=== PATIENT | male | born 1955 | race Caucasian/White ===

== ENCOUNTER → 2021-04-19 16:19 | Outpatient (CLI) | payer MEDICARE, SELFPAY ==
--- NOTE | 2021-04-19 | DI.RAD.S_ITS ---
PROCEDURE: XR HAND RT MIN 3V INDICATIONS: CYST AND EXPOSED ORTHOPEDIC HARDWARE TECHNIQUE: 3 views of the hand(s) acquired. COMPARISON: None. FINDINGS: Two screws are present in the base of the 1st metacarpal. There is no abnormal lucency surrounding the screws to suggest loosening. The more distal screw appears potentially to have backed out by approximately 2 millimeters, although there is no prior imaging to compare position of the screw. Intra osseous cyst in the distal and medial aspect of the 1st proximal phalanx may represent intraosseous ganglion cyst or other intra osseous cyst. IMPRESSION: Two screws in the base of the 1st metacarpal, one of which may have potentially migrated since placement (although there is no comparison imaging available). Intra osseous lucency in the distal aspect of the 1st proximal phalanx is presumably an intra osseous ganglion cyst or other intra osseous cystic lesion. Dictated by: Javon Arcos M.D. on 04/19/2021 at 17:03 Approved by: Javon Arcos M.D. on 04/19/2021 at 17:05
== END ==
PROVIDERS: Referring Provider Family Medicine; Visit Provider Family Medicine
DX: M25.841 Other specified joint disorders, right hand (principal); T84.098A Other mechanical complication of other internal joint prosthesis, initial encounter
CPT/HCPCS: 73130